=== PATIENT | male | born 1995 | race Caucasian/White ===

== ENCOUNTER 2020-09-29 02:02 | Emergency (ER) | payer BC ==
[~2020-09-29 02:02] MED LIST: MEDROL4 MG PO; VENTOLIN HFA 66.7 GM INH; ZITHROMAX500 MG PO
[2020-09-29 02:49] LABS: HEMOGLOBIN 17.6 gm/dl (14.0-17.5); RED BLOOD COUNT 5.85 M/UL (4.20-5.50); WHITE BLOOD COUNT 10.2 K/UL (4.5-11.0)
[2020-09-29 03:14] LABS: BUN/CREATININE RATIO 12 (0-10)
== END 2020-09-29 08:50 | disposition home or self-care (01) ==
LOC: ER1 02:02
PROVIDERS: Physician Assistant
DX: R07.89 Other chest pain (principal); E87.6 Hypokalemia; F17.220 Nicotine dependence, chewing tobacco, uncomplicated; Z20.822 Contact with and (suspected) exposure to COVID-19; Z88.0 Allergy status to penicillin
CPT/HCPCS: 0240U; 71045; 80053; 82550; 82553; 83874; 84484; 85025; 93005; 99285

== ENCOUNTER 2020-10-21 06:43 | Emergency (ER) | payer BC ==
[2020-10-21 07:21] LABS: HEMOGLOBIN 18.2 gm/dl (14.0-17.5); RED BLOOD COUNT 6.01 M/UL (4.20-5.50); WHITE BLOOD COUNT 15.2 K/UL (4.5-11.0)
[2020-10-21 07:57] LABS: BUN/CREATININE RATIO 14 (0-10)
== END 2020-10-21 10:59 | disposition home or self-care (01) ==
LOC: ER1 06:43
PROVIDERS: Physician Assistant
DX: R07.9 Chest pain, unspecified (principal); Z20.822 Contact with and (suspected) exposure to COVID-19; Z88.0 Allergy status to penicillin; F17.220 Nicotine dependence, chewing tobacco, uncomplicated
CPT/HCPCS: 71045; 80053; 82550; 82553; 83874; 84484; 85025; 85379; 93005; 99285; J7030; U0002